=== PATIENT | male | born 1940 | race Two or more races ===

== ENCOUNTER 2021-09-27 14:26 | Inpatient (IN) | payer MEDICARE, OTHER ==
[~2021-09-27] VITALS: Ht 170.2 cm; Wt 97.5 kg
[2021-09-27] MEDS ORDERED: SODIUM CHLORIDE 0.9% 1,000 ML IV ONE (14:45)
[2021-09-27 15:29] LABS: Basophils # (auto) 0.1 10 ^3/uL (0-0.2); Eosinophils # (auto) 0 10 ^3/uL (0-0.8); Hematocrit 35.6 % (41.0-53.0); Hemoglobin 12.1 g/dL (13.5-17.5); Lymphocytes # (auto) 0.4 10 ^3/uL (0.4-5.4); Lymphocytes % (auto) 2.8 % (10.0-50.0); Mean Corpuscular Hemoglobin 30.6 pg (28.0-32.0); Monocytes # (auto) 1.3 10 ^3/uL (0-1.3); Monocytes % (auto) 8.9 % (0.0-12.0); Neutrophils # (auto) 12.6 10 ^3/uL (1.6-8.6); Neutrophils % (auto) 87.3 % (37.0-80.0); Nucleated Red Blood Cells % 0.1 %; Red Blood Cells 3.96 10^6/uL (4.5-5.90); White Blood Cell 14.5 10^3/uL (4.4-10.8)
[2021-09-27 15:49] LABS: Albumin 2.4 g/dL (3.4-5.0); Calcium 8.3 mg/dL (8.5-10.1); Magnesium 2.3 mg/dL (1.6-2.6); Potassium 4.3 mmol/L (3.5-5.1)
[2021-09-27 15:52] LABS: BUN/Creatinine Ratio 19.8; Bilirubin, Total 0.6 mg/dL (0.2-1.0)
[2021-09-27] MEDS ORDERED: DEXTROSE (50%) 50ML SYRG IV ONE (19:25)
[2021-09-27] MEDS ORDERED: fentaNYL CITRATE 100 MCG/2 ML VL IV ONE (22:15)
[2021-09-27] MEDS ORDERED: ACETAMINOPHEN 325 MG TAB PO PRN (22:45)
[2021-09-27] MEDS ORDERED: DOCUSATE SOD 100 MG CAP PO PRN (22:45)
[2021-09-27] MEDS ORDERED: ONDANSETRON HCL 4 MG/2 ML VIAL IV PRN (22:45)
[2021-09-27] MEDS ORDERED: DEXTROSE (50%) 50ML SYRG IV PRN (22:45)
[2021-09-27 22:54] LABS: Urine Bacteria NONE SEEN /hpf (None Seen); Urine Blood 3+ /uL (Negative); Urine Hyaline Cast FEW /lpf (0 - 2); Urine Mucus FEW (None Seen); Urine Specific Gravity 1.015 (1.001-1.035); Urine WBC 21 /hpf (0 - 3)
[2021-09-27] MEDS: SODIUM CHLORIDE 0.9% 1,000 ML IV SCH (23:30)
[2021-09-28] MEDS ORDERED: MORPHINE SULFATE INJ 2 MG/ml SYRG IV PRN
[2021-09-28] MEDS ORDERED: NITROGLYCERIN 0.4 MG SL TAB SL PRN
[2021-09-28] MEDS: cefTRIAXone 1GM/50ML D5W 50 ML IV ONE ×2 (00:13→00:23)
[2021-09-28] MEDS ORDERED: levoFLOXacin 500MG 100 ML IV ONE (01:00)
[2021-09-28 05:26] LABS: Potassium 4.1 mmol/L (3.5-5.1)
[2021-09-28 05:27] LABS: BUN/Creatinine Ratio 19.5
[2021-09-28 05:30] LABS: Bilirubin, Total 0.5 mg/dL (0.2-1.0)
[2021-09-28 05:40] LABS: Basophils # (auto) 0 10 ^3/uL (0-0.2); Basophils % (auto) 0.4 % (0.0-2.0); Eosinophils # (auto) 0 10 ^3/uL (0-0.8); Eosinophils % (auto) 0.1 % (0.0-7.0); Hematocrit 31.8 % (41.0-53.0); Hemoglobin 11.1 g/dL (13.5-17.5); Lymphocytes # (auto) 0.6 10 ^3/uL (0.4-5.4); Lymphocytes % (auto) 4.9 % (10.0-50.0); Mean Corpuscular Hgb Conc. 34.8 g/dL (32.0-36.0); Mean Corpuscular Volume 91.8 fL (80.0-100.0); Monocytes # (auto) 1.5 10 ^3/uL (0-1.3); Monocytes % (auto) 12.9 % (0.0-12.0); Neutrophils # (auto) 9.7 10 ^3/uL (1.6-8.6); Neutrophils % (auto) 81.7 % (37.0-80.0); Nucleated Red Blood Cells % 0.1 %; Red Blood Cells 3.46 10^6/uL (4.5-5.90); Red Cell Distribution Width 14.1 % (11.8-14.3); White Blood Cell 11.9 10^3/uL (4.4-10.8)
[2021-09-28] MEDS: ACCU-CHEK COMFORT CURVE STRIP VI SCH ×4 (06:32→21:44)
[2021-09-28] MEDS: InsuLIN REG 1unit/0.01ml Soln (100units/ml) SC SCH ×4 (06:35→21:41)
[2021-09-28] MEDS ORDERED: FLEET ENEMA(ADULT) 135 ML PR ONE (08:45)
[2021-09-28] MEDS: levoFLOXacin 500MG 100 ML IV SCH (08:52)
[2021-09-28] MEDS ORDERED: cefTRIAXone 1GM/50ML D5W 50 ML IV SCH (09:00)
[2021-09-28] MEDS: APIXABAN 2.5 MG TAB PO SCH ×2 (09:15→21:18)
[2021-09-28] MEDS: FAMOTIDINE (10MG/ML) 2ML VL IV SCH (09:16)
[2021-09-28] MEDS: CARVEDILOL 3.125 MG TAB PO SCH ×2 (09:16→21:23)
[2021-09-28] MEDS: ASPirin 81 mg TAB PO SCH (09:16)
[2021-09-28] MEDS ORDERED: cefTRIAXone 1GM/50ML D5W 50 ML IV ONE ×2 (11:45→12:00)
[2021-09-28] MEDS: metroNIDAZOLE 500MG/100ML 100 ML IV SCH ×2 (14:38→21:18)
[2021-09-28] MEDS: SODIUM CHLORIDE 0.9% 1,000 ML IV SCH (15:49)
[2021-09-28 19:00] VITALS: BP 123/70
[2021-09-28 20:00] VITALS: BP 132/76
[2021-09-28] MEDS: HYDROcodone-ACET 5/325MG TAB PO PRN (21:23)
[2021-09-28 21:59] VITALS: BP 136/74
[2021-09-29 05:00] VITALS: BP 148/85
[2021-09-29] MEDS: metroNIDAZOLE 500MG/100ML 100 ML IV SCH ×3 (06:00→23:13)
[2021-09-29 06:32] LABS: Basophils # (auto) 0 10 ^3/uL (0-0.2); Basophils % (auto) 0.5 % (0.0-2.0); Eosinophils # (auto) 0.1 10 ^3/uL (0-0.8); Eosinophils % (auto) 0.5 % (0.0-7.0); Hematocrit 33.2 % (41.0-53.0); Hemoglobin 11.9 g/dL (13.5-17.5); Lymphocytes # (auto) 0.5 10 ^3/uL (0.4-5.4); Lymphocytes % (auto) 4.9 % (10.0-50.0); Mean Corpuscular Hemoglobin 32.9 pg (28.0-32.0); Mean Corpuscular Hgb Conc. 35.9 g/dL (32.0-36.0); Mean Corpuscular Volume 91.7 fL (80.0-100.0); Monocytes % (auto) 9.3 % (0.0-12.0); Neutrophils # (auto) 8.7 10 ^3/uL (1.6-8.6); Neutrophils % (auto) 84.8 % (37.0-80.0); Red Blood Cells 3.62 10^6/uL (4.5-5.90); Red Cell Distribution Width 14.1 % (11.8-14.3); White Blood Cell 10.3 10^3/uL (4.4-10.8)
[2021-09-29 06:53] LABS: Potassium 4.3 mmol/L (3.5-5.1)
[2021-09-29 07:01] LABS: Bilirubin, Total 0.7 mg/dL (0.2-1.0); Calcium 8.1 mg/dL (8.5-10.1); Magnesium 2.2 mg/dL (1.6-2.6); Total Protein 6.3 g/dL (6.4-8.2)
[2021-09-29 08:00] VITALS: BP 127/74
[2021-09-29] MEDS: SODIUM CHLORIDE 0.9% 1,000 ML IV SCH (08:05)
[2021-09-29 09:00] VITALS: BP 127/74
[2021-09-29] MEDS: APIXABAN 2.5 MG TAB PO SCH ×2 (09:01→22:59)
[2021-09-29] MEDS: ASPirin 81 mg TAB PO SCH (09:01)
[2021-09-29] MEDS: ACCU-CHEK COMFORT CURVE STRIP VI SCH ×4 (09:02→23:02)
[2021-09-29] MEDS: FAMOTIDINE (10MG/ML) 2ML VL IV SCH (09:02)
[2021-09-29] MEDS: CARVEDILOL 3.125 MG TAB PO SCH ×2 (09:02→23:01)
[2021-09-29] MEDS: cefTRIAXone 1GM/50ML D5W 50 ML IV SCH (09:10)
[2021-09-29] MEDS: InsuLIN REG 1unit/0.01ml Soln (100units/ml) SC SCH ×4 (09:12→23:06)
[2021-09-29] MEDS ORDERED: OMNIPAQUE ORAL SOLN 500ml 12mg/ml PO ONE (10:19)
[2021-09-29 13:00] VITALS: BP 141/84
[2021-09-29] MEDS: levoFLOXacin 500MG 100 ML IV SCH (16:01)
[2021-09-29 17:00] VITALS: BP 143/85
[2021-09-29 22:00] VITALS: BP 143/77
[2021-09-29] MEDS ORDERED: predniSONE 20 MG TAB PO SCH (22:45)
[2021-09-30] MEDS: SODIUM CHLORIDE 0.9% 1,000 ML IV SCH ×2 (00:52→17:36)
[2021-09-30] MEDS ORDERED: predniSONE 20 MG TAB PO SCH ×2 (02:00→08:00)
[2021-09-30 05:00] VITALS: BP 142/79
[2021-09-30] MEDS: ACCU-CHEK COMFORT CURVE STRIP VI SCH ×4 (05:58→22:06)
[2021-09-30] MEDS: metroNIDAZOLE 500MG/100ML 100 ML IV SCH ×3 (05:58→21:43)
[2021-09-30] MEDS: InsuLIN REG 1unit/0.01ml Soln (100units/ml) SC SCH ×4 (06:10→22:08)
[2021-09-30] MEDS ORDERED: OMNIPAQUE ORAL SOLN 500ml 12mg/ml PO ONE (06:19)
[2021-09-30 08:26] VITALS: BP 144/84
[2021-09-30] MEDS ORDERED: predniSONE 20 MG TAB PO ONE (09:15)
[2021-09-30] MEDS ORDERED: diphenhdrAMINE HCL 50 MG/1 ML VL IV ONE (09:15)
[2021-09-30] MEDS: cefTRIAXone 1GM/50ML D5W 50 ML IV SCH (10:28)
[2021-09-30] MEDS: levoFLOXacin 500MG 100 ML IV SCH (10:28)
[2021-09-30] MEDS: ASPirin 81 mg TAB PO SCH (10:29)
[2021-09-30] MEDS: APIXABAN 2.5 MG TAB PO SCH ×2 (10:29→21:43)
[2021-09-30] MEDS: FAMOTIDINE (10MG/ML) 2ML VL IV SCH (10:29)
[2021-09-30] MEDS: CARVEDILOL 3.125 MG TAB PO SCH ×2 (10:30→21:50)
[2021-09-30] MEDS: HYDROcodone-ACET 5/325MG TAB PO PRN ×2 (10:45→18:12)
[2021-09-30 12:32] VITALS: BP 142/74
[2021-09-30 16:38] VITALS: BP 145/82
[2021-09-30 20:00] VITALS: BP 148/78
[2021-09-30 21:23] VITALS: BP 148/78
[2021-09-30] MEDS ORDERED: TEMAZEPAM 15 MG CAP PO ONE (22:00)
[2021-10-01 05:00] VITALS: BP 157/74
[2021-10-01] MEDS: HYDROcodone-ACET 5/325MG TAB PO PRN ×2 (05:02→18:10)
[2021-10-01] MEDS: metroNIDAZOLE 500MG/100ML 100 ML IV SCH ×3 (05:05→18:23)
[2021-10-01] MEDS: ACCU-CHEK COMFORT CURVE STRIP VI SCH ×4 (06:25→22:24)
[2021-10-01] MEDS: InsuLIN REG 1unit/0.01ml Soln (100units/ml) SC SCH ×4 (06:26→22:23)
[2021-10-01 08:30] VITALS: BP 135/87
[2021-10-01] MEDS: cefTRIAXone 1GM/50ML D5W 50 ML IV SCH (09:42)
[2021-10-01 09:43] LABS: INR 1.59 (0.9-1.15)
[2021-10-01] MEDS: CARVEDILOL 3.125 MG TAB PO SCH ×2 (10:00→22:21)
[2021-10-01] MEDS: ASPirin 81 mg TAB PO SCH (10:00)
[2021-10-01] MEDS: SODIUM CHLORIDE 0.9% 1,000 ML IV SCH (10:05)
[2021-10-01 12:30] VITALS: BP 146/69
[2021-10-01] MEDS ORDERED: LACTULOSE 20Gm/30ML SOLN PO PRN (16:00)
[2021-10-01 16:30] VITALS: BP 148/88
[2021-10-01] MEDS ORDERED: TIOT17SP IN (17:05)
[2021-10-01] MEDS ORDERED: FENO2.5C PO (17:05)
[2021-10-01] MEDS ORDERED: TELM1TAB35 PO (17:05)
[2021-10-01] MEDS ORDERED: ISOS10TA2 PO (17:05)
[2021-10-01] MEDS ORDERED: APIX2.5T PO (17:05)
[2021-10-01] MEDS ORDERED: ATOR20TA50 PO (17:05)
[2021-10-01] MEDS ORDERED: SITA100T7 PO (17:05)
[2021-10-01] MEDS ORDERED: INSRTEST SC (17:05)
[2021-10-01] MEDS ORDERED: POTA10TA32 PO (17:05)
[2021-10-01] MEDS ORDERED: FURO40TA4 PO (17:05)
[2021-10-01] MEDS ORDERED: DIGO0.25 PO (17:05)
[2021-10-01] MEDS ORDERED: CALC1TAB92 PO (17:05)
[2021-10-01] MEDS ORDERED: TAMS1CAP25 PO (17:05)
[2021-10-01] MEDS ORDERED: MAGN400T40 PO (17:05)
[2021-10-01] MEDS ORDERED: POM PO (17:23)
[2021-10-01 20:00] VITALS: BP 148/78
[2021-10-01 22:00] VITALS: BP 130/78
[2021-10-01] MEDS: DOCUSATE SOD 100 MG CAP PO SCH (22:20)
[2021-10-02] MEDS: SODIUM CHLORIDE 0.9% 1,000 ML IV SCH ×3 (03:35→22:01)
[2021-10-02 05:00] VITALS: BP 159/73
[2021-10-02] MEDS: metroNIDAZOLE 500MG/100ML 100 ML IV SCH ×3 (06:07→22:02)
[2021-10-02] MEDS: InsuLIN REG 1unit/0.01ml Soln (100units/ml) SC SCH ×4 (06:48→23:24)
[2021-10-02] MEDS: ACCU-CHEK COMFORT CURVE STRIP VI SCH ×4 (06:49→22:02)
[2021-10-02 06:56] LABS: Lactic Acid w/Reflex 2.1 mmol/L (0.4-2.0)
[2021-10-02 07:00] LABS: Basophils # (auto) 0 10 ^3/uL (0-0.2); Basophils % (auto) 0.2 % (0.0-2.0); Eosinophils # (auto) 0 10 ^3/uL (0-0.8); Eosinophils % (auto) 0.3 % (0.0-7.0); Hematocrit 33.5 % (41.0-53.0); Hemoglobin 11.7 g/dL (13.5-17.5); Lymphocytes # (auto) 0.5 10 ^3/uL (0.4-5.4); Lymphocytes % (auto) 3.8 % (10.0-50.0); Mean Corpuscular Hemoglobin 31.6 pg (28.0-32.0); Mean Corpuscular Hgb Conc. 34.8 g/dL (32.0-36.0); Mean Corpuscular Volume 90.7 fL (80.0-100.0); Monocytes # (auto) 1.2 10 ^3/uL (0-1.3); Monocytes % (auto) 9.1 % (0.0-12.0); Neutrophils # (auto) 10.9 10 ^3/uL (1.6-8.6); Neutrophils % (auto) 86.6 % (37.0-80.0); Nucleated Red Blood Cells % 0.1 %; Red Blood Cells 3.69 10^6/uL (4.5-5.90); Red Cell Distribution Width 14.7 % (11.8-14.3); White Blood Cell 12.6 10^3/uL (4.4-10.8)
[2021-10-02 07:08] LABS: Albumin 2.2 g/dL (3.4-5.0); Calcium 8.1 mg/dL (8.5-10.1); Magnesium 2.3 mg/dL (1.6-2.6)
[2021-10-02 07:10] LABS: Bilirubin, Total 0.6 mg/dL (0.2-1.0); Total Protein 5.7 g/dL (6.4-8.2)
[2021-10-02 07:26] LABS: INR 1.53 (0.9-1.15)
[2021-10-02] MEDS: ASPirin 81 mg TAB PO SCH (08:39)
[2021-10-02] MEDS: CARVEDILOL 3.125 MG TAB PO SCH (08:39)
[2021-10-02] MEDS: DOCUSATE SOD 100 MG CAP PO SCH (08:39)
[2021-10-02 09:20] VITALS: BP 150/79
[2021-10-02] MEDS: cefTRIAXone 1GM/50ML D5W 50 ML IV SCH (09:35)
[2021-10-02 12:45] VITALS: BP 158/73
[2021-10-02 16:35] VITALS: BP 153/77
[2021-10-02] MEDS ORDERED: CARVEDILOL 3.125 MG TAB NG SCH (22:00)
[2021-10-02] MEDS ORDERED: DOCUSATE ORAL LIQUID 100 MG/10 ML UD NG SCH (22:00)
[2021-10-03 05:00] VITALS: BP 144/64
[2021-10-03] MEDS: metroNIDAZOLE 500MG/100ML 100 ML IV SCH ×3 (06:42→21:57)
[2021-10-03] MEDS: ACCU-CHEK COMFORT CURVE STRIP VI SCH ×4 (06:42→21:58)
[2021-10-03] MEDS: InsuLIN REG 1unit/0.01ml Soln (100units/ml) SC SCH ×4 (06:46→22:02)
[2021-10-03 08:08] LABS: Basophils # (auto) 0 10 ^3/uL (0-0.2); Basophils % (auto) 0.1 % (0.0-2.0); Eosinophils # (auto) 0 10 ^3/uL (0-0.8); Eosinophils % (auto) 0.1 % (0.0-7.0); Hematocrit 34.8 % (41.0-53.0); Lymphocytes # (auto) 0.5 10 ^3/uL (0.4-5.4); Lymphocytes % (auto) 3.2 % (10.0-50.0); Mean Corpuscular Hemoglobin 30.1 pg (28.0-32.0); Mean Corpuscular Hgb Conc. 33.3 g/dL (32.0-36.0); Mean Corpuscular Volume 90.4 fL (80.0-100.0); Neutrophils # (auto) 12.9 10 ^3/uL (1.6-8.6); Neutrophils % (auto) 89.6 % (37.0-80.0); Red Blood Cells 3.85 10^6/uL (4.5-5.90); Red Cell Distribution Width 14.7 % (11.8-14.3); White Blood Cell 14.4 10^3/uL (4.4-10.8)
[2021-10-03 08:15] LABS: Hemoglobin 11.6 g/dL (13.5-17.5)
[2021-10-03 08:25] LABS: INR 1.6 (0.9-1.15)
[2021-10-03] MEDS: ASPirin 81 mg TAB PO SCH (08:37)
[2021-10-03] MEDS: cefTRIAXone 1GM/50ML D5W 50 ML IV SCH (08:37)
[2021-10-03] MEDS: DOCUSATE SOD 100 MG CAP PO SCH ×2 (08:37→21:58)
[2021-10-03] MEDS: CARVEDILOL 3.125 MG TAB PO SCH ×2 (08:38→21:57)
[2021-10-03 09:00] VITALS: BP 159/82
[2021-10-03] MEDS: SODIUM CHLORIDE 0.9% 1,000 ML IV SCH ×2 (11:15→16:27)
[2021-10-03 13:00] VITALS: BP 149/75
[2021-10-03 21:30] VITALS: BP 153/80
[2021-10-04] MEDS ORDERED: LORazepam 2MG/ML-1ML VIAL ONE (02:04)
[2021-10-04 05:00] VITALS: BP 158/92
[2021-10-04 05:53] LABS: Calcium 7.8 mg/dL (8.5-10.1); Lactic Acid w/Reflex 2.1 mmol/L (0.4-2.0); Potassium 3.5 mmol/L (3.5-5.1)
[2021-10-04 05:55] LABS: BUN/Creatinine Ratio 27.6
[2021-10-04] MEDS: metroNIDAZOLE 500MG/100ML 100 ML IV SCH (06:26)
[2021-10-04] MEDS: ACCU-CHEK COMFORT CURVE STRIP VI SCH ×4 (06:26→22:25)
[2021-10-04 06:27] LABS: Basophils # (auto) 0.1 10 ^3/uL (0-0.2); Basophils % (auto) 0.5 % (0.0-2.0); Eosinophils # (auto) 0.1 10 ^3/uL (0-0.8); Hematocrit 32.4 % (41.0-53.0); Hemoglobin 11.1 g/dL (13.5-17.5); Lymphocytes # (auto) 0.7 10 ^3/uL (0.4-5.4); Lymphocytes % (auto) 5.3 % (10.0-50.0); Mean Corpuscular Hemoglobin 31.5 pg (28.0-32.0); Mean Corpuscular Hgb Conc. 34.3 g/dL (32.0-36.0); Mean Corpuscular Volume 91.7 fL (80.0-100.0); Monocytes # (auto) 0.6 10 ^3/uL (0-1.3); Monocytes % (auto) 4.8 % (0.0-12.0); Neutrophils # (auto) 11.8 10 ^3/uL (1.6-8.6); Neutrophils % (auto) 88.4 % (37.0-80.0); Nucleated Red Blood Cells % 0.1 %; Red Blood Cells 3.53 10^6/uL (4.5-5.90); Red Cell Distribution Width 14.9 % (11.8-14.3); White Blood Cell 13.3 10^3/uL (4.4-10.8)
[2021-10-04] MEDS: InsuLIN REG 1unit/0.01ml Soln (100units/ml) SC SCH ×4 (06:41→22:25)
[2021-10-04 09:00] VITALS: BP 161/77
[2021-10-04] MEDS: DOCUSATE SOD 100 MG CAP PO SCH ×2 (10:00→22:16)
[2021-10-04] MEDS: SODIUM CHLORIDE 0.9% 1,000 ML IV SCH (10:05)
[2021-10-04] MEDS: cefTRIAXone 1GM/50ML D5W 50 ML IV SCH (10:05)
[2021-10-04] MEDS: ASPirin 81 mg TAB PO SCH (10:06)
[2021-10-04] MEDS: CARVEDILOL 3.125 MG TAB PO SCH ×2 (10:07→22:16)
[2021-10-04 12:33] VITALS: BP 147/85
[2021-10-04] MEDS: metroNIDAZOLE 500 MG TAB PO SCH ×2 (15:29→22:16)
[2021-10-04 16:55] VITALS: BP 131/82
[2021-10-04 22:12] VITALS: BP 130/61
[2021-10-05] MEDS: SODIUM CHLORIDE 0.9% 1,000 ML IV SCH ×2 (01:50→09:27)
[2021-10-05 04:25] VITALS: BP 156/87
[2021-10-05] MEDS: ACCU-CHEK COMFORT CURVE STRIP VI SCH ×4 (06:00→21:32)
[2021-10-05] MEDS: metroNIDAZOLE 500 MG TAB PO SCH ×2 (06:26→14:30)
[2021-10-05] MEDS: InsuLIN REG 1unit/0.01ml Soln (100units/ml) SC SCH ×4 (06:29→21:29)
[2021-10-05 06:52] LABS: Hematocrit 32.7 % (41.0-53.0); Hemoglobin 11.3 g/dL (13.5-17.5); Mean Corpuscular Hemoglobin 31.3 pg (28.0-32.0); Mean Corpuscular Hgb Conc. 34.4 g/dL (32.0-36.0); Red Cell Distribution Width 15.1 % (11.8-14.3); White Blood Cell 11.6 10^3/uL (4.4-10.8)
[2021-10-05 06:56] LABS: Basophils % (manual) 0 (0.0-2.0); Blast Cells 0; Eosinophils % (manual) 0 (0-7); Myelocytes % 0; Promyelocytes % 0; Reactive Lymphocytes 0
[2021-10-05 08:52] LABS: Band Neutrophils % (manual) 27; Lymphocytes % (manual) 5 (10.0-50.0); Metamyelocytes % 2; Monocytes % (manual) 6 (0-12)
[2021-10-05 09:00] VITALS: BP 157/69
[2021-10-05] MEDS: cefTRIAXone 1GM/50ML D5W 50 ML IV SCH (09:09)
[2021-10-05] MEDS: DOCUSATE SOD 100 MG CAP PO SCH ×3 (09:10→21:21)
[2021-10-05] MEDS: CARVEDILOL 3.125 MG TAB PO SCH ×2 (09:10→21:26)
[2021-10-05 12:35] VITALS: BP 141/75
[2021-10-05 17:00] VITALS: BP 133/80
[2021-10-05] MEDS: HYDROcodone-ACET 5/325MG TAB PO PRN (21:21)
[2021-10-05 22:00] VITALS: BP 149/79
[2021-10-06 05:00] VITALS: BP 147/86
[2021-10-06] MEDS: InsuLIN REG 1unit/0.01ml Soln (100units/ml) SC SCH ×4 (06:25→21:50)
[2021-10-06] MEDS: ACCU-CHEK COMFORT CURVE STRIP VI SCH ×4 (06:26→21:48)
[2021-10-06 09:08] VITALS: BP 150/92
[2021-10-06] MEDS: CARVEDILOL 3.125 MG TAB PO SCH ×2 (09:27→21:25)
[2021-10-06 13:27] VITALS: BP 134/84
[2021-10-06 17:22] VITALS: BP 153/85
[2021-10-06] MEDS: Pro-Stat SF 30ml Vanilla PO SCH (17:29)
[2021-10-06] MEDS: HYDROcodone-ACET 5/325MG TAB PO PRN (21:26)
[2021-10-06 22:00] VITALS: BP 146/83
[2021-10-07 05:00] VITALS: BP 142/82
[2021-10-07] MEDS: ACCU-CHEK COMFORT CURVE STRIP VI SCH ×4 (06:46→22:08)
[2021-10-07] MEDS: InsuLIN REG 1unit/0.01ml Soln (100units/ml) SC SCH ×4 (06:48→22:08)
[2021-10-07 08:57] VITALS: BP 149/81
[2021-10-07] MEDS: CARVEDILOL 3.125 MG TAB PO SCH ×2 (09:49→22:07)
[2021-10-07] MEDS ORDERED: LOSARTAN POTASSIUM 50 MG TAB PO ONE (10:45)
[2021-10-07] MEDS ORDERED: FUROSEMIDE 20 MG/2 ML VIAL IV ONE (10:45)
[2021-10-07] MEDS: Pro-Stat SF 30ml Vanilla PO SCH ×2 (10:53→17:46)
[2021-10-07 13:13] VITALS: BP 140/81
[2021-10-07 15:08] LABS: Basophils # (auto) 0 10 ^3/uL (0-0.2); Basophils % (auto) 0.3 % (0.0-2.0); Eosinophils # (auto) 0.1 10 ^3/uL (0-0.8); Eosinophils % (auto) 0.7 % (0.0-7.0); Hematocrit 34.7 % (41.0-53.0); Hemoglobin 11.7 g/dL (13.5-17.5); Lymphocytes # (auto) 0.6 10 ^3/uL (0.4-5.4); Lymphocytes % (auto) 4.8 % (10.0-50.0); Mean Corpuscular Hgb Conc. 33.8 g/dL (32.0-36.0); Mean Corpuscular Volume 88.8 fL (80.0-100.0); Monocytes # (auto) 0.8 10 ^3/uL (0-1.3); Monocytes % (auto) 6.9 % (0.0-12.0); Neutrophils # (auto) 10.7 10 ^3/uL (1.6-8.6); Neutrophils % (auto) 87.3 % (37.0-80.0); Nucleated Red Blood Cells % 0.2 %; Red Cell Distribution Width 15.2 % (11.8-14.3); White Blood Cell 12.2 10^3/uL (4.4-10.8)
[2021-10-07 16:43] VITALS: BP 135/87
[2021-10-07] MEDS: TAMSULOSIN HYDROCHLORIDE 0.4 MG CAP PO SCH (17:25)
[2021-10-07 22:00] VITALS: BP 143/82
[2021-10-07] MEDS: ATORVASTATIN 20 MG TAB PO SCH (22:07)
[2021-10-08 05:00] VITALS: BP 138/69
[2021-10-08] MEDS: ACCU-CHEK COMFORT CURVE STRIP VI SCH ×4 (06:08→21:30)
[2021-10-08] MEDS: InsuLIN REG 1unit/0.01ml Soln (100units/ml) SC SCH ×4 (06:09→22:24)
[2021-10-08] MEDS: Pro-Stat SF 30ml Vanilla PO SCH ×2 (08:42→18:00)
[2021-10-08] MEDS: LOSARTAN POTASSIUM 50 MG TAB PO SCH (08:43)
[2021-10-08] MEDS: CARVEDILOL 3.125 MG TAB PO SCH ×2 (08:43→22:16)
[2021-10-08] MEDS: FUROSEMIDE 20 MG/2 ML VIAL IV SCH (08:43)
[2021-10-08 09:00] VITALS: BP 149/85
[2021-10-08] MEDS ORDERED: cefTRIAXone 1GM/50ML D5W 50 ML IV ONE (10:00)
[2021-10-08 13:00] VITALS: BP 142/88
[2021-10-08] MEDS ORDERED: POTASSIUM EFFERVESENT TAB 25 MEQ PO ONE (15:30)
[2021-10-08] MEDS: TAMSULOSIN HYDROCHLORIDE 0.4 MG CAP PO SCH (16:41)
[2021-10-08 16:49] VITALS: BP 141/84
[2021-10-08 22:00] VITALS: BP 140/76
[2021-10-08] MEDS ORDERED: cefTRIAXone 1GM/50ML D5W 50 ML IV SCH (22:00)
[2021-10-08] MEDS: ATORVASTATIN 20 MG TAB PO SCH (22:16)
[2021-10-09 05:00] VITALS: BP 134/66
[2021-10-09 06:00] LABS: Calcium 7.8 mg/dL (8.5-10.1); Potassium 4.5 mmol/L (3.5-5.1)
[2021-10-09] MEDS: ACCU-CHEK COMFORT CURVE STRIP VI SCH ×4 (06:13→22:00)
[2021-10-09] MEDS: InsuLIN REG 1unit/0.01ml Soln (100units/ml) SC SCH ×3 (06:21→16:36)
[2021-10-09] MEDS: Pro-Stat SF 30ml Vanilla PO SCH ×2 (08:00→17:44)
[2021-10-09 09:00] VITALS: BP 152/78
[2021-10-09] MEDS ORDERED: cefTRIAXone 1GM/50ML D5W 50 ML IV SCH (09:00)
[2021-10-09] MEDS: FUROSEMIDE 20 MG/2 ML VIAL IV SCH (09:27)
[2021-10-09] MEDS: cefTRIAXone 1GM/50ML D5W 50 ML IV SCH (09:28)
[2021-10-09] MEDS: LOSARTAN POTASSIUM 50 MG TAB PO SCH (09:29)
[2021-10-09] MEDS: CARVEDILOL 3.125 MG TAB PO SCH ×2 (09:29→22:00)
[2021-10-09] MEDS: POTASSIUM EFFERVESENT TAB 25 MEQ PO SCH (09:30)
[2021-10-09 13:00] VITALS: BP_SYST 108; BP_SYST 120; BP_DIAS 60; BP_DIAS 87
[2021-10-09 14:09] LABS: Hemoglobin 11.4 g/dL (13.5-17.5); Mean Corpuscular Hemoglobin 29.7 pg (28.0-32.0); Mean Corpuscular Hgb Conc. 33.6 g/dL (32.0-36.0); Mean Corpuscular Volume 88.6 fL (80.0-100.0); Red Blood Cells 3.84 10^6/uL (4.5-5.90); Red Cell Distribution Width 15.6 % (11.8-14.3); White Blood Cell 11.8 10^3/uL (4.4-10.8)
[2021-10-09 14:27] LABS: Basophils % (manual) 0 (0.0-2.0); Blast Cells 0; Myelocytes % 0; Promyelocytes % 0; Reactive Lymphocytes 0
[2021-10-09 14:37] LABS: BUN/Creatinine Ratio 22.2; Band Neutrophils % (manual) 1; Calcium 7.9 mg/dL (8.5-10.1); Eosinophils % (manual) 2 (0-7); Lymphocytes % (manual) 1 (10.0-50.0); Metamyelocytes % 1; Monocytes % (manual) 10 (0-12); Potassium 4.1 mmol/L (3.5-5.1)
[2021-10-09 17:00] VITALS: BP 154/81
[2021-10-09] MEDS: TAMSULOSIN HYDROCHLORIDE 0.4 MG CAP PO SCH (17:44)
[2021-10-09] MEDS ORDERED: CIPROFLOXACIN 400MG/200ML 200 ML IV ONE (19:09)
[2021-10-09] MEDS ORDERED: CHLORHEXIDINE 4% TOPICAL soln 118ml TOP ONE (20:42)
[2021-10-09] MEDS ORDERED: fentaNYL CITRATE 100 MCG/2 ML VL ONE (20:46)
[2021-10-09] MEDS ORDERED: MIDAZOLAM HCL 2MG/2ML 2ml VIAL (1mg/ml) ONE (20:50)
[2021-10-09] MEDS ORDERED: LIDOCAINE 2% (LOCAL ANESTH.) PF 5ml SDV ONE (20:51)
[2021-10-09] MEDS ORDERED: PROPOFOL 10 MG/ML 20 ML IV ONE (21:36)
[2021-10-09] MEDS ORDERED: ONDANSETRON HCL 4 MG/2 ML VIAL ONE (21:36)
[2021-10-09] MEDS ORDERED: HYDROmorphone HCL 2 MG/ML VL/or syr IV PRN ×2 (22:00)
[2021-10-09] MEDS: ATORVASTATIN 20 MG TAB PO SCH (22:00)
[2021-10-09] MEDS ORDERED: ONDANSETRON HCL 4 MG/2 ML VIAL IV PRN (22:00)
[2021-10-09] MEDS ORDERED: NEOSTIGMINE 1 MG/ML INJ (10mg/10ML VIAL) ONE (22:35)
[2021-10-09] MEDS ORDERED: GLYCOPYRROLATE 0.2 MG/ML 1ML VIAL ONE (22:35)
[2021-10-10 00:34] VITALS: BP 91/49
[2021-10-10] MEDS: InsuLIN REG 1unit/0.01ml Soln (100units/ml) SC SCH ×5 (00:52→22:18)
[2021-10-10 05:00] VITALS: BP 101/58
[2021-10-10] MEDS: ACCU-CHEK COMFORT CURVE STRIP VI SCH ×4 (06:30→22:05)
[2021-10-10 07:16] LABS: Hematocrit 31.7 % (41.0-53.0); Hemoglobin 10.9 g/dL (13.5-17.5); Mean Corpuscular Hgb Conc. 34.3 g/dL (32.0-36.0); Mean Corpuscular Volume 93.4 fL (80.0-100.0); Red Blood Cells 3.39 10^6/uL (4.5-5.90); Red Cell Distribution Width 15.6 % (11.8-14.3)
[2021-10-10 07:30] LABS: Basophils % (manual) 0 (0.0-2.0); Blast Cells 0; Eosinophils % (manual) 0 (0-7); Metamyelocytes % 0; Myelocytes % 0; Promyelocytes % 0; Reactive Lymphocytes 0
[2021-10-10 07:33] LABS: Calcium 7.8 mg/dL (8.5-10.1); Potassium 4.5 mmol/L (3.5-5.1)
[2021-10-10 07:37] LABS: BUN/Creatinine Ratio 23.6
[2021-10-10] MEDS: Pro-Stat SF 30ml Vanilla PO SCH ×2 (08:00→18:00)
[2021-10-10 08:42] LABS: Band Neutrophils % (manual) 1; Lymphocytes % (manual) 6 (10.0-50.0); Monocytes % (manual) 6 (0-12)
[2021-10-10 09:00] VITALS: BP 104/52
[2021-10-10] MEDS: BELLADONNA ALKAL/OPIUM (16.2/30MG) RECT SUPP PR SCH (10:00)
[2021-10-10] MEDS: POTASSIUM EFFERVESENT TAB 25 MEQ PO SCH (10:10)
[2021-10-10] MEDS: CARVEDILOL 3.125 MG TAB PO SCH ×2 (10:10→22:00)
[2021-10-10] MEDS: FUROSEMIDE 20 MG/2 ML VIAL IV SCH (10:11)
[2021-10-10] MEDS: cefTRIAXone 1GM/50ML D5W 50 ML IV SCH (10:11)
[2021-10-10] MEDS: LOSARTAN POTASSIUM 50 MG TAB PO SCH (10:12)
[2021-10-10 13:00] VITALS: BP 119/65
[2021-10-10 17:00] VITALS: BP 109/75
[2021-10-10] MEDS: TAMSULOSIN HYDROCHLORIDE 0.4 MG CAP PO SCH (19:24)
[2021-10-10 22:00] VITALS: BP 92/59
[2021-10-10] MEDS: Glucerna Carbsteady SHAKE Vanilla 8oz PO SCH (22:06)
[2021-10-10] MEDS: ATORVASTATIN 20 MG TAB PO SCH (22:06)
[2021-10-11 05:00] VITALS: BP 103/52
[2021-10-11] MEDS: ACCU-CHEK COMFORT CURVE STRIP VI SCH ×4 (06:26→22:16)
[2021-10-11] MEDS: InsuLIN REG 1unit/0.01ml Soln (100units/ml) SC SCH ×4 (06:26→22:00)
[2021-10-11 09:00] VITALS: BP 84/46
[2021-10-11] MEDS: CARVEDILOL 3.125 MG TAB PO SCH (09:30)
[2021-10-11] MEDS: Pro-Stat SF 30ml Vanilla PO SCH ×2 (09:30→16:55)
[2021-10-11] MEDS: LOSARTAN POTASSIUM 50 MG TAB PO SCH (09:30)
[2021-10-11] MEDS: FUROSEMIDE 20 MG/2 ML VIAL IV SCH (09:31)
[2021-10-11] MEDS: BELLADONNA ALKAL/OPIUM (16.2/30MG) RECT SUPP PR SCH (10:00)
[2021-10-11] MEDS: cefTRIAXone 1GM/50ML D5W 50 ML IV SCH (10:09)
[2021-10-11] MEDS: POTASSIUM EFFERVESENT TAB 25 MEQ PO SCH (10:09)
[2021-10-11] MEDS: Glucerna Carbsteady SHAKE Vanilla 8oz PO SCH ×2 (10:11→22:16)
[2021-10-11] MEDS: SODIUM CHLORIDE 0.9% 1,000 ML IV SCH ×2 (12:55→22:36)
[2021-10-11 13:00] VITALS: BP 76/31
[2021-10-11 14:37] LABS: Basophils # (auto) 0.1 10 ^3/uL (0-0.2); Eosinophils # (auto) 0 10 ^3/uL (0-0.8); Lymphocytes # (auto) 0.7 10 ^3/uL (0.4-5.4); Monocytes # (auto) 1.2 10 ^3/uL (0-1.3); Neutrophils % (auto) 89.5 % (37.0-80.0); Nucleated Red Blood Cells % 0.5 %; Red Blood Cells 2.76 10^6/uL (4.5-5.90)
[2021-10-11 14:39] LABS: Basophils % (auto) 0.7 % (0.0-2.0); Hematocrit 25.4 % (41.0-53.0); Hemoglobin 8.4 g/dL (13.5-17.5); Lymphocytes % (auto) 3.4 % (10.0-50.0); Mean Corpuscular Hemoglobin 30.4 pg (28.0-32.0); Mean Corpuscular Hgb Conc. 33.1 g/dL (32.0-36.0); Monocytes % (auto) 6.4 % (0.0-12.0); Neutrophils # (auto) 17.3 10 ^3/uL (1.6-8.6); White Blood Cell 19.3 10^3/uL (4.4-10.8)
[2021-10-11 14:53] LABS: Albumin 1.6 g/dL (3.4-5.0); Calcium 6.6 mg/dL (8.5-10.1); Potassium 5.1 mmol/L (3.5-5.1)
[2021-10-11 14:57] LABS: BUN/Creatinine Ratio 27.8; Bilirubin, Total 0.4 mg/dL (0.2-1.0); Total Protein 4.8 g/dL (6.4-8.2)
[2021-10-11] MEDS: TAMSULOSIN HYDROCHLORIDE 0.4 MG CAP PO SCH (16:36)
[2021-10-11 16:55] VITALS: BP 87/35
[2021-10-11 16:58] VITALS: BP 98/42
[2021-10-11 22:00] VITALS: BP 98/38
[2021-10-11] MEDS: ATORVASTATIN 20 MG TAB PO SCH (22:25)
[2021-10-12 04:00] VITALS: BP 100/48
[2021-10-12 05:51] LABS: BUN/Creatinine Ratio 32.4; Calcium 6.7 mg/dL (8.5-10.1)
[2021-10-12 05:52] LABS: Hematocrit 21.1 % (41.0-53.0); Hemoglobin 7.6 g/dL (13.5-17.5); Mean Corpuscular Hemoglobin 34.5 pg (28.0-32.0); Mean Corpuscular Hgb Conc. 35.8 g/dL (32.0-36.0); Mean Corpuscular Volume 96.5 fL (80.0-100.0); Red Blood Cells 2.19 10^6/uL (4.5-5.90); Red Cell Distribution Width 15.6 % (11.8-14.3); White Blood Cell 13.1 10^3/uL (4.4-10.8)
[2021-10-12 06:05] LABS: Basophils % (manual) 0 (0.0-2.0); Blast Cells 0; Eosinophils % (manual) 0 (0-7); Metamyelocytes % 0; Myelocytes % 0; Promyelocytes % 0; Reactive Lymphocytes 0
[2021-10-12] MEDS: ACCU-CHEK COMFORT CURVE STRIP VI SCH ×4 (06:39→21:03)
[2021-10-12] MEDS: InsuLIN REG 1unit/0.01ml Soln (100units/ml) SC SCH ×4 (06:42→21:29)
[2021-10-12 08:09] LABS: Band Neutrophils % (manual) 48; Lymphocytes % (manual) 5 (10.0-50.0); Monocytes % (manual) 4 (0-12)
[2021-10-12] MEDS: cefTRIAXone 1GM/50ML D5W 50 ML IV SCH (08:57)
[2021-10-12] MEDS: Glucerna Carbsteady SHAKE Vanilla 8oz PO SCH ×2 (08:57→21:03)
[2021-10-12] MEDS: SODIUM CHLORIDE 0.9% 1,000 ML IV SCH ×3 (08:57→21:29)
[2021-10-12] MEDS: Pro-Stat SF 30ml Vanilla PO SCH ×2 (08:57→17:42)
[2021-10-12] MEDS: BELLADONNA ALKAL/OPIUM (16.2/30MG) RECT SUPP PR SCH (08:57)
[2021-10-12 09:00] VITALS: BP 104/45
[2021-10-12] MEDS ORDERED: FUROSEMIDE 20 MG/2 ML VIAL IV ONE (11:45)
[2021-10-12 13:00] VITALS: BP 107/42
[2021-10-12 17:00] VITALS: BP 114/33
[2021-10-12] MEDS: TAMSULOSIN HYDROCHLORIDE 0.4 MG CAP PO SCH (17:42)
[2021-10-12] MEDS: ATORVASTATIN 20 MG TAB PO SCH (21:03)
[2021-10-12 22:00] VITALS: BP 98/34
[2021-10-13 05:00] VITALS: BP 127/54
[2021-10-13] MEDS: InsuLIN REG 1unit/0.01ml Soln (100units/ml) SC SCH ×4 (06:21→21:33)
[2021-10-13] MEDS: ACCU-CHEK COMFORT CURVE STRIP VI SCH ×4 (06:21→21:33)
[2021-10-13 07:18] LABS: Eosinophils # (auto) 0.1 10 ^3/uL (0-0.8); Hemoglobin 7.6 g/dL (13.5-17.5); Lymphocytes # (auto) 0.4 10 ^3/uL (0.4-5.4); Nucleated Red Blood Cells % 0.3 %
[2021-10-13 07:19] LABS: Potassium 4.7 mmol/L (3.5-5.1)
[2021-10-13 07:22] LABS: Basophils # (auto) 0.1 10 ^3/uL (0-0.2); Basophils % (auto) 0.5 % (0.0-2.0); Eosinophils % (auto) 0.7 % (0.0-7.0); Hematocrit 21.8 % (41.0-53.0); Lymphocytes % (auto) 3.3 % (10.0-50.0); Mean Corpuscular Hemoglobin 33.2 pg (28.0-32.0); Mean Corpuscular Hgb Conc. 34.7 g/dL (32.0-36.0); Mean Corpuscular Volume 95.6 fL (80.0-100.0); Monocytes % (auto) 8.3 % (0.0-12.0); Neutrophils # (auto) 10.4 10 ^3/uL (1.6-8.6); Neutrophils % (auto) 87.2 % (37.0-80.0); Red Blood Cells 2.28 10^6/uL (4.5-5.90); Red Cell Distribution Width 15.7 % (11.8-14.3); White Blood Cell 11.9 10^3/uL (4.4-10.8)
[2021-10-13 07:24] LABS: BUN/Creatinine Ratio 45.8; Calcium 6.7 mg/dL (8.5-10.1)
[2021-10-13 09:00] VITALS: BP 103/50
[2021-10-13] MEDS: cefTRIAXone 1GM/50ML D5W 50 ML IV SCH (09:32)
[2021-10-13] MEDS: BELLADONNA ALKAL/OPIUM (16.2/30MG) RECT SUPP PR SCH (09:43)
[2021-10-13] MEDS ORDERED: FUROSEMIDE 20 MG/2 ML VIAL IV ONE (11:30)
[2021-10-13] MEDS ORDERED: QUEtiapine FUMARATE 25 MG TAB PO PRN (11:30)
[2021-10-13] MEDS: Pro-Stat SF 30ml Vanilla PO SCH ×2 (11:58→18:18)
[2021-10-13] MEDS: Glucerna Carbsteady SHAKE Vanilla 8oz PO SCH ×2 (11:59→21:34)
[2021-10-13 13:00] VITALS: BP 104/49
[2021-10-13 17:00] VITALS: BP 101/50
[2021-10-13] MEDS: TAMSULOSIN HYDROCHLORIDE 0.4 MG CAP PO SCH (17:33)
[2021-10-13] MEDS: FUROSEMIDE 20 MG/2 ML VIAL IV SCH (17:33)
[2021-10-13] MEDS ORDERED: FUROSEMIDE 20 MG/2 ML VIAL IV SCH (18:00)
[2021-10-13] MEDS: ATORVASTATIN 20 MG TAB PO SCH (21:32)
[2021-10-13 22:00] VITALS: BP 102/39
[2021-10-14] VITALS (7 sets, daily range): BP systolic 91–117; BP diastolic 46–54
[2021-10-14] MEDS: FUROSEMIDE 20 MG/2 ML VIAL IV SCH ×2 (06:00→17:50)
[2021-10-14] MEDS: InsuLIN REG 1unit/0.01ml Soln (100units/ml) SC SCH ×4 (06:10→23:12)
[2021-10-14] MEDS: ACCU-CHEK COMFORT CURVE STRIP VI SCH ×4 (06:10→22:33)
[2021-10-14] MEDS: Pro-Stat SF 30ml Vanilla PO SCH ×2 (08:53→17:51)
[2021-10-14] MEDS: Glucerna Carbsteady SHAKE Vanilla 8oz PO SCH ×2 (08:54→22:33)
[2021-10-14] MEDS: cefTRIAXone 1GM/50ML D5W 50 ML IV SCH (08:54)
[2021-10-14] MEDS ORDERED: INSULIN LANTUS (GLARGINE) 1 /0.01ml (100units/ml) SC SCH (10:00)
[2021-10-14] MEDS: BELLADONNA ALKAL/OPIUM (16.2/30MG) RECT SUPP PR SCH (10:00)
[2021-10-14] MEDS: MIDODRINE HCL 10 MG TAB PO SCH ×2 (11:33→17:51)
[2021-10-14 12:27] LABS: Albumin 1.3 g/dL (3.4-5.0); Calcium 6.9 mg/dL (8.5-10.1); Potassium 4.8 mmol/L (3.5-5.1)
[2021-10-14 12:31] LABS: BUN/Creatinine Ratio 52.7; Bilirubin, Total 0.3 mg/dL (0.2-1.0); Total Protein 4.3 g/dL (6.4-8.2)
[2021-10-14] MEDS ORDERED: ALBUMIN 25% 50 ML IV ONE (14:30)
[2021-10-14 14:53] LABS: Basophils # (auto) 0 10 ^3/uL (0-0.2); Eosinophils # (auto) 0.1 10 ^3/uL (0-0.8); Hematocrit 20.8 % (41.0-53.0); Lymphocytes # (auto) 0.5 10 ^3/uL (0.4-5.4)
[2021-10-14 14:56] LABS: Basophils % (auto) 0.3 % (0.0-2.0); Eosinophils % (auto) 0.8 % (0.0-7.0); Lymphocytes % (auto) 4.2 % (10.0-50.0); Mean Corpuscular Hemoglobin 32.4 pg (28.0-32.0); Mean Corpuscular Hgb Conc. 33.5 g/dL (32.0-36.0); Mean Corpuscular Volume 96.6 fL (80.0-100.0); Monocytes % (auto) 8.7 % (0.0-12.0); Neutrophils # (auto) 10.2 10 ^3/uL (1.6-8.6); Nucleated Red Blood Cells % 0.4 %; Red Blood Cells 2.15 10^6/uL (4.5-5.90); Red Cell Distribution Width 15.7 % (11.8-14.3); White Blood Cell 11.8 10^3/uL (4.4-10.8)
[2021-10-14] MEDS: TAMSULOSIN HYDROCHLORIDE 0.4 MG CAP PO SCH (17:50)
[2021-10-14] MEDS: ATORVASTATIN 20 MG TAB PO SCH (23:11)
[2021-10-14] MEDS: INSULIN LANTUS (GLARGINE) 1 /0.01ml (100units/ml) SC SCH (23:12)
[2021-10-15] VITALS (48 sets, daily range): BP systolic 70–170; BP diastolic 16–104
[2021-10-15 03:16] LABS: Hemoglobin 7.4 g/dL (13.5-17.5)
[2021-10-15] MEDS ORDERED: PHENYLEPHRINE IV 250 ML IV ONE ×2 (04:31→19:35)
[2021-10-15] MEDS: PHENYLEPHRINE IV 250 ML IV SCH ×3 (04:37→16:18)
[2021-10-15] MEDS: MIDODRINE HCL 10 MG TAB PO SCH (06:00)
[2021-10-15] MEDS: FUROSEMIDE 20 MG/2 ML VIAL IV SCH ×2 (07:49→16:12)
[2021-10-15] MEDS: ACCU-CHEK COMFORT CURVE STRIP VI SCH ×4 (07:52→21:58)
[2021-10-15] MEDS: InsuLIN REG 1unit/0.01ml Soln (100units/ml) SC SCH ×4 (07:54→21:54)
[2021-10-15] MEDS: Pro-Stat SF 30ml Vanilla PO SCH ×2 (08:16→16:27)
[2021-10-15] MEDS: Glucerna Carbsteady SHAKE Vanilla 8oz PO SCH ×2 (09:09→21:57)
[2021-10-15] MEDS: BELLADONNA ALKAL/OPIUM (16.2/30MG) RECT SUPP PR SCH (09:09)
[2021-10-15] MEDS: cefTRIAXone 1GM/50ML D5W 50 ML IV SCH (09:11)
[2021-10-15 09:44] LABS: Hemoglobin 7.4 g/dL (13.5-17.5)
[2021-10-15 09:46] LABS: Hematocrit 22.2 % (41.0-53.0); Mean Corpuscular Hemoglobin 30.4 pg (28.0-32.0); Mean Corpuscular Hgb Conc. 33.5 g/dL (32.0-36.0); Mean Corpuscular Volume 90.8 fL (80.0-100.0); Red Blood Cells 2.44 10^6/uL (4.5-5.90); White Blood Cell 13.1 10^3/uL (4.4-10.8)
[2021-10-15 09:51] LABS: Basophils % (manual) 0 (0.0-2.0); Blast Cells 0; Eosinophils % (manual) 0 (0-7); Promyelocytes % 0; Reactive Lymphocytes 0
[2021-10-15 11:04] LABS: Band Neutrophils % (manual) 1; Lymphocytes % (manual) 11 (10.0-50.0); Metamyelocytes % 3; Monocytes % (manual) 6 (0-12); Myelocytes % 2
[2021-10-15] MEDS ORDERED: NOREPINEPHRINE 8 MG/250ML KIT 250 ML IV PRN (11:15)
[2021-10-15] MEDS: SODIUM CHLORIDE 0.9% 1,000 ML IV SCH (11:15)
[2021-10-15] MEDS: MORPHINE SULFATE INJ 2 MG/ml SYRG IV PRN ×2 (12:00→16:11)
[2021-10-15] MEDS ORDERED: VANCOMYCIN PER PHARMACY 0 MG IV SCH (12:00)
[2021-10-15] MEDS ORDERED: CEFEPIME 2 GM in SODIUM CHL 0.9% 50 ML IV ONE (12:00)
[2021-10-15] MEDS: ALBUMIN 25% 100 ML IV SCH ×2 (12:43→20:38)
[2021-10-15] MEDS ORDERED: VANCOMYCIN 1GM/250ML 250 ML IV ONE (13:00)
[2021-10-15 14:34] LABS: Albumin 1.9 g/dL (3.4-5.0); BUN/Creatinine Ratio 57.1; Calcium 7.3 mg/dL (8.5-10.1); Magnesium 2.7 mg/dL (1.6-2.6); Potassium 5.5 mmol/L (3.5-5.1)
[2021-10-15 14:58] LABS: Bilirubin, Total 0.5 mg/dL (0.2-1.0); Total Protein 4.5 g/dL (6.4-8.2)
[2021-10-15] MEDS ORDERED: SODIUM ZIRCONIUM CYCL 10 GM PAK PO ONE (16:00)
[2021-10-15] MEDS: TAMSULOSIN HYDROCHLORIDE 0.4 MG CAP PO SCH (16:27)
[2021-10-15] MEDS ORDERED: PHENYLEPHRINE INJ 80 MG in SODIUM CHL 0.9% 242 ML IV PRN (16:45)
[2021-10-15] MEDS ORDERED: PHENYLEPHRINE HCL 10 MG/ML VL ONE ×2 (20:19→20:20)
[2021-10-15] MEDS: CEFEPIME 2 GM in SODIUM CHL 0.9% 50 ML IV SCH (20:39)
[2021-10-15] MEDS: INSULIN LANTUS (GLARGINE) 1 /0.01ml (100units/ml) SC SCH (21:57)
[2021-10-16] VITALS (54 sets, daily range): BP systolic 47–166; BP diastolic 10–117
[2021-10-16] MEDS: SODIUM CHLORIDE 0.9% 1,000 ML IV SCH (00:35)
[2021-10-16] MEDS: CEFEPIME 2 GM in SODIUM CHL 0.9% 50 ML IV SCH (03:56)
[2021-10-16] MEDS: ALBUMIN 25% 100 ML IV SCH (03:58)
[2021-10-16 04:40] LABS: White Blood Cell 13.8 10^3/uL (4.4-10.8)
[2021-10-16 04:42] LABS: Hematocrit 19.3 % (41.0-53.0); Mean Corpuscular Hemoglobin 34.3 pg (28.0-32.0); Mean Corpuscular Hgb Conc. 35.9 g/dL (32.0-36.0); Mean Corpuscular Volume 95.4 fL (80.0-100.0); Red Blood Cells 2.03 10^6/uL (4.5-5.90); Red Cell Distribution Width 15.4 % (11.8-14.3)
[2021-10-16 04:58] LABS: Potassium 5.5 mmol/L (3.5-5.1)
[2021-10-16 05:06] LABS: Albumin 2.5 g/dL (3.4-5.0); BUN/Creatinine Ratio 66.4; Bilirubin, Total 0.4 mg/dL (0.2-1.0); Calcium 7.2 mg/dL (8.5-10.1); Magnesium 2.4 mg/dL (1.6-2.6); Total Protein 4.8 g/dL (6.4-8.2)
[2021-10-16 05:14] LABS: Hemoglobin 6.9 g/dL (13.5-17.5)
[2021-10-16 05:16] LABS: Basophils % (manual) 0 (0.0-2.0); Blast Cells 0; Eosinophils % (manual) 0 (0-7); Metamyelocytes % 0; Promyelocytes % 0; Reactive Lymphocytes 0
[2021-10-16] MEDS: FUROSEMIDE 20 MG/2 ML VIAL IV SCH (06:20)
[2021-10-16 07:41] LABS: Band Neutrophils % (manual) 6; Lymphocytes % (manual) 9 (10.0-50.0); Monocytes % (manual) 1 (0-12); Myelocytes % 4
[2021-10-16] MEDS: Pro-Stat SF 30ml Vanilla PO SCH (08:00)
[2021-10-16] MEDS: Glucerna Carbsteady SHAKE Vanilla 8oz PO SCH (09:08)
[2021-10-16] MEDS: MORPHINE SULFATE INJ 2 MG/ml SYRG IV PRN ×2 (09:58)
[2021-10-16] MEDS ORDERED: VANCOMYCIN 1GM/250ML 250 ML IV SCH (13:00)
[2021-10-16] MEDS ORDERED: MORPHINE SULFATE INJ 2 MG/ml SYRG IV PRN (14:45)
[2021-10-16] MEDS ORDERED: LORazepam 2MG/ML-1ML VIAL IV PRN (14:45)
[2021-10-16] MEDS ORDERED: NOREPINEPHRINE 8 MG/250ML KIT 250 ML IV PRN (16:30)
== END 2021-10-16 19:10 | DRG 853 ==
LOC: ER 14:26 → EDBD 14:26 → TELE 23:51 → TELE-WESTW 09-28 18:05 → ICU WEST 10-15 05:01
PROVIDERS: ADMIT Nurse Practitioner Family; ATTEND Internal Medicine
PROC: 0VB08ZZ Excision of Prostate, Via Natural or Artificial Opening Endoscopic (ICD-10-PCS; principal; 2021-10-09 20:43)
PROC: 05HC33Z Insertion of Infusion Device into Left Basilic Vein, Percutaneous Approach (ICD-10-PCS; 2021-10-11)
PROC: B54NZZA Ultrasonography of Left Upper Extremity Veins, Guidance (ICD-10-PCS; 2021-10-11)
PROC: 30233N1 Transfusion of Nonautologous Red Blood Cells into Peripheral Vein, Percutaneous Approach (ICD-10-PCS; 2021-10-14)
PROC: 5A09357 Assistance with Respiratory Ventilation, Less than 24 Consecutive Hours, Continuous Positive Airway Pressure (ICD-10-PCS; 2021-10-15)
DX: A41.9 Sepsis, unspecified organism (principal); J96.01 Acute respiratory failure with hypoxia; I50.33 Acute on chronic diastolic (congestive) heart failure; N41.2 Abscess of prostate; E87.1 Hypo-osmolality and hyponatremia; C79.51 Secondary malignant neoplasm of bone; I48.20 Chronic atrial fibrillation, unspecified; R57.9 Shock, unspecified; K92.2 Gastrointestinal hemorrhage, unspecified; I49.5 Sick sinus syndrome; C61 Malignant neoplasm of prostate; E11.649 Type 2 diabetes mellitus with hypoglycemia without coma; E88.09 Other disorders of plasma-protein metabolism, not elsewhere classified; K59.00 Constipation, unspecified; R31.9 Hematuria, unspecified; Z20.822 Contact with and (suspected) exposure to COVID-19; R91.1 Solitary pulmonary nodule; I11.0 Hypertensive heart disease with heart failure; D50.0 Iron deficiency anemia secondary to blood loss (chronic); R65.20 Severe sepsis without septic shock; Z66 Do not resuscitate; Z96.652 Presence of left artificial knee joint; E66.9 Obesity, unspecified; E78.5 Hyperlipidemia, unspecified; N40.1 Benign prostatic hyperplasia with lower urinary tract symptoms; R33.8 Other retention of urine; Z80.3 Family history of malignant neoplasm of breast; Z87.891 Personal history of nicotine dependence; Z90.79 Acquired absence of other genital organ(s); Z80.42 Family history of malignant neoplasm of prostate; Z51.5 Encounter for palliative care; Z95.0 Presence of cardiac pacemaker; Z79.899 Other long term (current) drug therapy; Z88.0 Allergy status to penicillin; Z91.041 Radiographic dye allergy status; Z68.30 Body mass index [BMI] 30.0-30.9, adult; Z79.4 Long term (current) use of insulin
CPT/HCPCS: 36415; 36600; 70450; 71045; 74176; 74177; 80048; 80053; 80061; 80202; 81001; 82270; 82378; 82805; 82962; 83036; 83605; 83735; 83880; 84075; 84132; 84154; 84484; 85007; 85014; 85018; 85025; 85027; 85610; 86850; 86900; 86901; 86920; 87040; 87081; 87086; 93005; 93306; 93970; 93971; 94660; 96365; 96375; 97110; 97116; 97163; 97530; 99291; G0378; J0696; J1815; J1956; J2001; J2250; J2405; J2704; J3490; P9047